=== PATIENT | female | born 1990 | race Caucasian/White ===

== ENCOUNTER 2023-10-07 20:51 | Emergency (ER) | payer OTHER, SELFPAY ==
--- NOTE | ~2023-10-07 | XR_ITS ---
EXAMINATION: XR ANKLE, LEFT CLINICAL INFORMATION: Ankle pain and swelling COMPARISON: None available. TECHNIQUE: AP, lateral, and mortise views of the left ankle. FINDINGS: There is lateral soft tissue swelling. No fracture. Alignment is anatomic. No erosions. Joint spaces are maintained. XR/XR ankle LT min 3V IMPRESSION: Lateral soft tissue swelling without fracture.
[2023-10-07 20:54] VITALS: BP 127/71; PULSE 88; RESP 16; TEMP 37.1; O2SAT 100; BMI 34.9
--- NOTE | 2023-10-07 20:55 | ED.GENADULT ---
HPI - General Adult General Chief complaint: Extremity Injury, Lower Stated complaint: left ankle inj Time Seen by Provider: 10/07/23 22:00 Source: patient, RN notes reviewed and old records reviewed Mode of arrival: ambulatory Limitations: no limitations History of Present Illness HPI narrative: 32-year-old female presents for evaluation of left ankle pain. Patient was playing volleyball. She jumped up and then landed awkwardly on the left ankle your She describes an inversion injury She denies hitting her head or losing consciousness Denies any other injuries Her pain is mostly to the outside of the left ankle She has some pain radiating up her left leg but no knee pain or hip pain Her pain is sharp, 7/10 and worse if she tries to put any pressure on the area Related Data Allergies Allergy/AdvReac Type Severity Reaction Status Date / Time No Known Allergies Allergy Unverified 08/04/20 19:24 [No Known Allergies*] Review of Systems Constitutional: Constitutional: Denies chills and Denies fever(s) Musculoskeletal: Musculoskeletal: Reports arthralgias and Reports joint swelling PMFSH Social History Social History Advance Directives: No Advance Directives Information Provided: No Physical Exam ED Vital Signs: Vital Signs - 24 hr 10/07/23 20:54 Temperature 98.7 F Pulse Rate 88 Respiratory Rate 16 Blood Pressure 127/71 Pulse Oximetry 100 Oxygen Delivery Method Room Air BMI result Body Mass Index 34.9 Const General: healthy appearing, comfortable, no acute distress, alert and awake Nutritional Appearance: well nourished Orientation/consciousness: patient oriented x3 HENMT Head: Yes normocephalic and Yes atraumatic Eyes Eyelids: Yes eyelids normal Conjunctivae: conjunctivae normal Sclerae: sclerae normal Corneas: corneas normal Pupils: Equal, round and reactive pupils present EOM: EOMs intact bilaterally Neck Neck: Yes full ROM Resp Effort & Inspection: normal respiratory effort, able to speak in complete sentences and not labored Skin General skin exam: elasticity normal Neuro General: patient oriented x3 Cranial nerves: Yes Equal, round and reactive pupils present and Yes Bilaterally intact EOM present Cognition (Neuro): normal cognition Extrem Other: Mild edema to left lateral ankle overlying the lateral malleolus. This area is tender to palpation. Patient is able to wiggle all toes of the left foot. Distal sensation and capillary refill intact to left foot. Course Course Course Narrative: RME performed by Nahed Núñez PA-C. Patient is a 32 year old assigned female at presenting to the emergency department with left ankle pain after twisting it during a game of volleyball. Imaging ordered. Patient placed back in the waiting room pending room availability and results. Medical Decision Making Medical Decision Making MDM Narrative: 32-year-old female presents for evaluation of a left ankle injury. X-ray was ordered on my review appears to be negative for fracture. The patient will be discharged with crutches, Aircast and she was given instructions on rest, ice, elevation and compression Differential Diagnosis Differential Diagnoses: The differential diagnosis associated with the presentation includes Ankle sprain Ankle fracture Contusion Dislocation Independent Interpretation I performed an independent interpretation of an: Plain X-Ray (No acute fracture of the left ankle. Lateral soft tissue swelling) Discharge Plan Discharge Clinical Impression: Ankle sprain and strain Patient Disposition: Home, Self-Care Instructions: Ankle Sprain (ED) Additional Instructions: Your x-ray did not show any fracture. You have a sprained left ankle Elevate the leg above your heart while resting Use ibuprofen/Tylenol for pain Apply ice to the area every 4 hours for 10-15 minutes
[2023-10-07] MEDS: Ibuprofen 800 MG TABLET PO (22:53)
--- NOTE | 2023-10-07 22:53 | PC.NURSE ---
pt medicated per MAR.
== END 2023-10-07 23:08 | disposition home or self-care (01) ==
PROVIDERS: Emergency Provider Emergency Medicine Emergency Medical Services
DX: S93.402A Sprain of unspecified ligament of left ankle, initial encounter (principal); S96.912A Strain of unspecified muscle and tendon at ankle and foot level, left foot, initial encounter; X50.1XXA Overexertion from prolonged static or awkward postures, initial encounter; Y93.68 Activity, volleyball (beach) (court); Y92.39 Other specified sports and athletic area as the place of occurrence of the external cause; Y99.9 Unspecified external cause status
CPT/HCPCS: 73610; 99283

== ENCOUNTER 2024-06-10 14:54 | Emergency (ER) | payer SELFPAY ==
--- NOTE | ~2024-06-10 | CT_ITS ---
EXAMINATION: CT HEAD WITHOUT CONTRAST CLINICAL INFORMATION: Left facial and upper extremity numbness. COMPARISON: No relevant prior imaging. TECHNIQUE: Contiguous axial imaging was performed from the skull base to vertex without intravenous administration of contrast. This CT examination was performed using dose optimization techniques as appropriate, variously including the following: *Automated exposure control *Adjustment of mA and/or kV according to patient size (this includes techniques or standardized protocols for targeted exams where dose is matched to indication/reason for exam; i.e. extremities or head) *Use of iterative reconstruction technique DLP: 665 mGy-cm FINDINGS: There is no acute intracranial hemorrhage or abnormal extra-axial collection. No intracranial mass effect or midline shift. Lateral and third ventricles are normal. No hydrocephalus. Kingsley-white matter differentiation is preserved and there is no evidence of acute territorial infarct. The calvarium and skull base are intact. Mastoid air cells and middle ear cavities are well aerated. No active paranasal sinus disease. CT/CT head/brain wo IV con IMPRESSION: Normal CT scan of the head.
[2024-06-10 14:57] VITALS: BP 121/101; PULSE 86; RESP 18; TEMP 36.3; O2SAT 97; BMI 35.5
--- NOTE | 2024-06-10 14:57 | ED.GENADULT ---
HPI - General Adult General Chief complaint: General Medical Stated complaint: L side facial numbness/vision blurry Time Seen by Provider: 06/10/24 21:41 Source: patient Mode of arrival: ambulatory Limitations: no limitations History of Present Illness ED Provider: barrie AMARO narrative: Patient with History of migraines off and on around 1300 noticed blurred vision left eye with slight numbness of the left side face with mild headache no nausea no vomiting lasted for an hour after arrival in the ED patient does not have any vision changes has mild headache no scotomas or loss of vision no motor weakness patient had a CT scan prior to my arrival which was negative for acute Related Data Previous Rx's ?Medication ?Instructions ?Recorded btsrpeajqb-kemfrdavgjndm-leciiqkg 1 tab PO Q6H PRN haeadace #20 tabs 06/10/24 50 mg-325 mg-40 mg tablet sumatriptan succinate 50 mg tablet 50 mg PO Q2H PRN migraine headache 06/10/24 (Imitrex) #10 tabs Allergies Allergy/AdvReac Type Severity Reaction Status Date / Time No Known Allergies Allergy Verified 06/10/24 15:01 [No Known Allergies*] Review of Systems Review of Systems: Yes all other systems are reviewed and are negative PMFSH Social History Social History Advance Directives: No Advance Directives Information Provided: No Do you have a plan to hurt others: No Plan Patient : No Physical Exam ED Vital Signs: Vital Signs - 24 hr 06/10/24 14:57 06/10/24 20:00 06/10/24 22:32 Temperature 97.4 F 98.3 F 98.1 F Pulse Rate 86 84 75 Respiratory Rate 18 20 17 Blood Pressure 121/101 H 114/70 105/73 Pulse Oximetry 97 100 97 Oxygen Delivery Method Room Air Room Air Room Air BMI result Body Mass Index 35.5 Appearance: Alert. Oriented X3. No acute distress. Eyes: PERRLA, No Nystagmus normal visual spangler, EOMI fundus exam benign ENT: Pharynx normal. Oral Mucosa moist Neck: Normal inspection. Neck supple. CVS: Normal heart rate and rhythm. Pulses normal. Respiratory: No respiratory distress. Equal air entry bilateral, no wheezing/rales/rhonchi Abdomen: Soft and nontender. Bowel sounds are present, no mass palpable, no CVA tenderness Skin: Skin warm and dry. Normal skin color. Normal skin turgor. Extremities: No lower extremity edema. No calf tenderness Neuro: Oriented X 3. No motor deficit. No sensory deficit.No cerebellar signs , cranial nerves II-XII intact NIH Stroke Scale Internal: Initial- Upon Arrival Time: 15:01 Level of Consciousness: Alert Level of Consciousness Questions: Answers both questions correctly Level of Consciousness Commands: Performs both tasks correctly Best Gaze: Normal Visual: No visual loss Facial Palsy: Normal Motor Arm (Right): No drift Motor Arm (Left): No drift Motor Leg (Right): No drift Motor Leg (Left): No drift Limb Ataxia: Absent Best Language: No aphasia Dysarthia: Normal Extinction and Inattention: No abnormality Course Course Course Narrative: This is a rapid medical exam performed by Raphael Dotson NP: Additional HPI, ROS, PE not included below will be deferred to primary provider. Patient is a 33-year-old female presenting to the emergency department with complaint of brief episode of blurred vision in left eye around 1pm, also complains of intermittent numbness to left side of face and down left arm. Denies history of migraines. No focal deficits noted in triage. Ambulating with steady gait. NIHSS 0. Plan: visual acuity, labs, CT head Medications Administered Discontinued Medications Generic Name Dose Route Start Last Admin Trade Name Bashirq PRN Reason Stop Dose Admin Acetaminophen/Butalbital/Caffeine 1 tab 06/10/24 22:10 06/10/24 22:16 Butalb/Acetamin/Caff 50/325/40 Tablet PO 06/10/24 22:11 1 tab ONCE ONE Administration Medical Decision Making Medical Decision Making [facility] Narrative: Patient with left blurred vision with nonspecific subjective numbness lasted for an hour with history of migraine likely the cause CT scan of the head is negative Differential Diagnosis Differential Diagnoses: The differential diagnosis associated with the presentation includes Ocular migraine/refractory error/CVA/TIA Lab Data [facility] Lab Attestation statement: I reviewed the patient's lab results. 06/10/24 15:26 06/10/24 15:26 Labs: Lab Results 06/10/24 Range/Units 15:26 WBC 10.5 (4.8-10.8) X10*3/uL RBC 4.08 L (4.20-5.50) X10*6/uL Hgb 11.6 L (12.0-16.0) g/dl Hct 33.5 L (37.0-47.0) % MCV 82.1 (80.0-98.0) fL MCH 28.4 (27.0-33.0) pg MCHC 34.6 (31.0-35.0) g/dl RDW 13.2 (11.0-16.0) % Plt Count 254 (160-400) X10*3/uL MPV 9.6 (9.4-12.3) fL Immature Gran % (Auto) 0.4 (0.0-0.4) % Neut % (Auto) 68.4 (45-73) % Lymph % (Auto) 23.8 (20-40) % [place] % (Auto) 4.3 (2-11) % Eos % (Auto) 2.8 (0-4) % Baso % (Auto) 0.3 (0-2) % Lymph # (Auto) 2.5 (1.2-4.9) X10*3/uL [place] # (Auto) 0.5 (0.1-1.2) X10*3/uL Eos # (Auto) 0.3 (0.0-0.4) X10*3/uL Baso # (Auto) 0.0 (0.0-0.2) X10*3/uL Abs Immat Gran (auto) 0.04 H (0.00-0.03) X10*3/uL Absolute Neuts (auto) 7.2 (2.0-8.3) x10*3/uL Absolute Nucleated RBC 0.000 (0.0-0.012) X10*3/uL Nucleated RBC % (auto) 0.0 (0.0-0.2) /100WBC Sodium 140 (135-145) mmol/L Potassium 3.4 (3.3-5.1) mmol/L Chloride 106 (96-108) mmol/L Carbon Dioxide 26 (22-29) mmol/L Anion Gap 11 L (12-20) BUN 9 (9-16) mg/dL Creatinine 0.70 (0.5-1.4) mg/dL Estim Creat Clear Calc 134.0 Estimated GFR > 60 Random Glucose 104 (60-115) mg/dL Calcium 9.3 (8.4-10.2) mg/dL Magnesium 1.9 (1.6-2.6) mg/dL Total Bilirubin 0.4 (0.0-1.0) mg/dL AST 34 H (5-31) U/L ALT 34 H (0-31) U/L Alkaline Phosphatase 58 (39-117) U/L Troponin I High Sens < 2.7 (<3.5-17.0) ng/L Total Protein 6.9 (6.5-8.0) g/dL Albumin 4.1 (3.5-5.0) g/dL Beta HCG, Quant < 2 mIU/mL Independent Interpretation I performed an independent interpretation of an: CT Scan Interpretation: Normal brain CT Radiology Impression Discussion of test interpretation with radiology: I have reviewed the radiologist's reading. Discharge Plan Discharge Clinical Impression: Ocular migraine Patient Disposition: Home, Self-Care Instructions: Ocular Migraine (ED) Additional Instructions: Rest at home There is no findings of stroke at this time Imitrex and Fioricet as prescribed for headache Prescriptions: New sumatriptan succinate [Imitrex] 50 mg tablet 50 mg PO Q2H PRN (Reason: migraine headache) Qty: 10 0RF Rx Instructions: do not exceed 2 doses per 24 hrs lztjouamsm-nozhoqzynlmab-wztj 50-325-40 mg tablet 1 tab PO Q6H PRN (Reason: haeadace) Qty: 20 0RF Interventions: ED Discharge Assessment Last Done: 06/10/24 22:32 Discharge Date/Time: 06/10/24 22:33 Print Language: B[place]ian
--- NOTE | 2024-06-10 15:02 | ECG_ITS ---
Test Reason : LEFT ARM PAIN Blood Pressure : / mmHG Vent. Rate : 083 BPM Atrial Rate : 083 BPM P-R Int : 162 ms QRS Dur : 088 ms QT Int : 382 ms P-R-T Axes : 055 041 029 degrees QTc Int : 448 ms Normal sinus rhythm Normal ECG No previous ECGs available Referred By: Marianela Dotson Electronically Signed By:DORA SANTOS
[2024-06-10 15:33] LABS: MANUAL DIFF FLAG NO
[2024-06-10 15:34] LABS: Basophils Percent Auto 0.3 % (0-2); Eosinophils Absolute Auto 0.3 X10*3/uL (0.0-0.4); Eosinophils Percent Auto 2.8 % (0-4); Hematocrit 33.5 % (37.0-47.0); Hemoglobin 11.6 g/dl (12.0-16.0); Imm Gran Abs Auto 0.04 X10*3/uL (0.00-0.03); Imm Gran Pct Auto 0.4 % (0.0-0.4); Lymphocytes Absolute Auto 2.5 X10*3/uL (1.2-4.9); Lymphocytes Percent Auto 23.8 % (20-40); Mean Corpuscular HGB Conc 34.6 g/dl (31.0-35.0); Mean Corpuscular Hemoglobin 28.4 pg (27.0-33.0); Mean Corpuscular Volume 82.1 fL (80.0-98.0); Mean Platelet Volume 9.6 fL (9.4-12.3); Monocytes Absolute Auto 0.5 X10*3/uL (0.1-1.2); Monocytes Percent Auto 4.3 % (2-11); Neutrophils Absolute Auto 7.2 x10*3/uL (2.0-8.3); Neutrophils Percent Auto 68.4 % (45-73); Platelet Count 254 X10*3/uL (160-400); Red Blood Count 4.08 X10*6/uL (4.20-5.50); Red Cell Distribution Width 13.2 % (11.0-16.0); White Blood Count 10.5 X10*3/uL (4.8-10.8)
[2024-06-10 15:55] LABS: Alanine Aminotransferase 34 U/L (0-31); Albumin Level 4.1 g/dL (3.5-5.0); Alkaline Phosphatase 58 U/L (39-117); Anion Gap 11 (12-20); Aspartate Amino Transferase 34 U/L (5-31); Bilirubin Total 0.4 mg/dL (0.0-1.0); Blood Urea Nitrogen 9 mg/dL (9-16); Calcium 9.3 mg/dL (8.4-10.2); Carbon Dioxide 26 mmol/L (22-29); Chloride 106 mmol/L (96-108); Estimated Glomerular Filt Rate > 60; Glucose Random 104 mg/dL (60-115); HCG Quantitative < 2 mIU/mL; Magnesium 1.9 mg/dL (1.6-2.6); Potassium 3.4 mmol/L (3.3-5.1); Sodium 140 mmol/L (135-145); Total Protein 6.9 g/dL (6.5-8.0); Troponin-I High Sensitivity < 2.7 ng/L (<3.5-17.0)
[2024-06-10 20:00] VITALS: BP 114/70; PULSE 84; RESP 20; TEMP 36.8; O2SAT 100
[2024-06-10] MEDS: Butalb/Acetamin/Caff 50/325/40 TABLET 1 TAB PO (22:16)
[2024-06-10 22:32] VITALS: BP 105/73; PULSE 75; RESP 17; TEMP 36.7; O2SAT 97
== END 2024-06-10 22:33 | disposition home or self-care (01) ==
PROVIDERS: Registered Nurse Emergency; Emergency Provider Internal Medicine
DX: G43.B0 Ophthalmoplegic migraine, not intractable (principal)
CPT/HCPCS: 36415; 70450; 80053; 83735; 84484; 84702; 85025; 93005; 99284

== ENCOUNTER → 2024-06-10 15:02 | Outpatient (BNV) | payer SELFPAY | PROVIDERS: Emergency Provider Internal Medicine; Visit Provider Internal Medicine | DX: R20.2 Paresthesia of skin (principal); H53.9 Unspecified visual disturbance | CPT/HCPCS: 93010 ==